=== PATIENT | female | born 1945 | race American Indian/Alaskan Native ===

== ENCOUNTER 2023-02-11 09:41 | Emergency (ER) | payer MEDICARE, OTHER ==
[~2023-02-11] VITALS: Ht 154.9 cm; Wt 70.2 kg
--- OUTSIDE RECORDS SUMMARY | ~2023-02-11 | XMS | Continuity of Care Document ---
Demographics + + + | Address | [address] | | | [place] [address] | + + + | Preferred Language | Unknown | + + + | Marital Status | | + + + | Yazidi Affiliation | Unknown | + + + | Race | or | + + + | Ethnic Group | Not or | + + + Author + + + | Author | [facility] | + + + | Organization | [facility] | + + + | Address | [address] | | | [place] [address] | + + + | Phone | | + + + Care Team Providers + + + + | Care Meat And Seafood Clerk Name | Role | Phone | + + + + Unavailable | Unavailable | + + + + Unavailable | Unavailable | + + + + Allergies and Intolerances + + + + + | date | description | facility | type | + + + + + | (no date) | Morphine | [facility] | | + + + + + | (no date) | Morphine | [facility] ([facility] | | + + + + + | (no date) | Morphine | [facility] (unknown[facility] | | [facility] | | + + + + + | (no date) | morphine | [facility] | (unknown) | + + + + + | (no date) | No Known Allergies | [facility] | (unknown) | | | | | | + + + + + Encounters No information. Functional Status No information. Immunizations No information. Medications + + + + | date | description | facility | + + + + | 2023-02-05 00:00 | PSEUDOEPHEDRINE HCL | [facility] | + + + + | 2023-02-05 00:00 | ASPIRIN | [facility] | + + + + | 2023-02-05 00:00 | Timolol Maleate | [facility] | + + + + | 2018-07-31 00:00 | SUMATRIPTAN SUCCINATE | [facility] | + + + + | 2023-02-05 00:00 | ESCITALOPRAM OXALATE | [facility] | + + + + | 2023-02-05 00:00 | AMOXICILLIN/POTASSIUM CLAV | [facility] | | | | | + + + + | 2023-02-05 00:00 | LEVOCETIRIZINE | [facility] | | | DIHYDROCHLORIDE | | + + + + | 2023-02-05 00:00 | METOPROLOL SUCCINATE | [facility] | + + + + | 2023-02-05 00:00 | LEVOTHYROXINE SODIUM | [facility] | + + + + | 2023-02-05 00:00 | PRAVASTATIN SODIUM | [facility] | + + + + | 2023-02-05 00:00 | BUDESONIDE | [facility] | + + + + | 2023-02-05 00:00 | LOSARTAN POTASSIUM | [facility] | + + + + Problems + + + + | date | description | facility | + + + + | 2023-02-05 00:00 | Infection due to severe | [facility] | | | acute respiratory syndrome | | | | coronavirus 2 (SARS-CoV-2) | | + + + + | 2023-02-05 14:17 | COUGH, UNSPECIFIED | [facility] | + + + + | 2023-02-05 14:17 | COVID-19 | [facility] | + + + + | 2023-02-05 14:17 | 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 Results/Labs +--------+--------+ + +---------+--------+ + | test | date | author | facility | value | unit | | | | | | | | | interpreta | | | | | | | | tion | +--------+--------+ + +---------+--------+ + + + | Result panel 1 | + + + + + + +---------+ + + | (unknown) | (no date) | (unknown) | [facility] | (no | (units | (unknown) | | | [facility] | value) | unknown) | | [facility] | | | | + + + + +---------+ + + + + | Result panel 2 | + + + + + + +---------+ + + | (unknown) | (no date) | (unknown) | [facility] | (no | (units | (unknown) | | | | [facility] | value) | unknown) | | | | | [facility] | | | | + + + + +---------+ + + + + | Result panel 3 | + + + + + + +---------+ + + | (unknown) | (no date) | (unknown) | [facility] | (no | (units | (unknown) | | | | [facility] | value) | unknown) | | | | | [facility] | | | | + + + + +---------+ + + + + | Result panel 4 | + + + + + + +---------+ + + | (unknown) | (no date) | (unknown) | [facility] | (no | (units | (unknown) | | | | [facility] | value) | unknown) | | | | | [facility] | | | | + + + + +---------+ + + + + | Result panel 5 | + + + + + + +---------+ + + | (unknown) | (no date) | (unknown) | [facility] | (no | (units | (unknown) | | | | | [facility] | value) | unknown) | | | | | [facility] | | | | + + + + +---------+ + + + + | Result panel 6 | + + + + + + +---------+ + + | (unknown) | (no date) | (unknown) | [facility] | (no | (units | (unknown) | | | | | [facility] | value) | unknown) | | | | | [facility] | | | | + + + + +---------+ + + + + | Result panel 7 | + + + + + + +---------+ + + | (unknown) | (no date) | (unknown) | [facility] | (no | (units | (unknown) | | | | [facility] | value) | unknown) | | | | | [facility] | | | | + + + + +---------+ + + + + | Result panel 8 | + + + + + + +---------+ + + | (unknown) | (no date) | (unknown) | [facility] | (no | (units | (unknown) | | | | [facility] | value) | unknown) | | | | | [facility] | | | | + + + + +---------+ + + + + | Result panel 9 | + + + + + + +---------+ + + | (unknown) | (no date) | (unknown) | [facility] | (no | (units | (unknown) | | | | [facility] | value) | unknown) | | | | | [facility] | | | | + + + + +---------+ + + + + | Result panel 10 | + + + + + + +---------+ + + | (unknown) | (no date) | (unknown) | [facility] | (no | (units | (unknown) | | | | [facility] | value) | unknown) | | | | | [facility] | | | | + + + + +---------+ + + + + | Result panel 11 | + + + + + + +---------+ + + | (unknown) | (no date) | (unknown) | [facility] | (no | (units | (unknown) | | | | [facility] | value) | unknown) | | | | | [facility] | | | | + + + + +---------+ + + + + | Result panel 12 | + + + + + + +---------+ + + | (unknown) | (no date) | (unknown) | [facility] | (no | (units | (unknown) | | | | [facility] | value) | unknown) | | | | | [facility] | | | | + + + + +---------+ + + Social History No information. Vital Signs + + + +---------+ | date | measurement | value | units | + + + +---------+ | 2023-02-05 00:00 | BMI | 27.6 | kg/m2 | + + + +---------+ | 2023-02-05 00:00 | BP_diastolic | 80 | mmHg | + + + +---------+ | 2023-02-05 00:00 | BP_systolic | 167 | mmHg | + + + +---------+ | 2023-02-05 00:00 | heart_rate | 72 | /min | + + + +---------+ | 2023-02-05 00:00 | height_metric | 157.48 | cm | + + + +---------+ | 2023-02-05 00:00 | height_standard | 62 | in | + + + +---------+ | 2023-02-05 00:00 | o2_saturation | 100 | % | + + + +---------+ | 2023-02-05 00:00 | respiration_rate | 20 | /min | + + + +---------+ | 2023-02-05 00:00 | temperature_metric | 37.33 | C | | | | | | + + + +---------+ | 2023-02-05 00:00 | | 99.2 | F | | | temperature_standar | | | | | d | | | + + + +---------+ | 2023-02-05 00:00 | weight_metric | 68.49 | kg | + + + +---------+ | 2023-02-05 00:00 | weight_standard | 150.99 | lb | + + + +---------+ | 2023-02-05 00:00 | weight_standard | 151 | lb | + + + +---------+"
--- OUTSIDE RECORDS SUMMARY | ~2023-02-11 | XMS | Continuity of Care Document ---
Demographics + + + | Address | [address] | | | [place] [address] | + + + | Preferred Language | Unknown | + + + | Marital Status | | + + + | Hindu Affiliation | Unknown | + + + | Race | or | + + + | Ethnic Group | Not or | + + + Author + + + | Author | [facility] | + + + | Organization | [facility] | + + + | Address | [address] | | | [place] [address] | + + + | Phone | | + + + Care Team Providers + + + + | Care Decker Operator Name | Role | Phone | + [...] | 2023-02-05 00:00 | PSEUDOEPHEDRINE HCL | [facility] | + + + + | 2023-02-05 00:00 | ASPIRIN | [facility] | + + + + | 2023-02-05 00:00 | Timolol Maleate | [facility] | + + + + | 2018-07-31 00:00 | SUMATRIPTAN SUCCINATE | [facility] | + + + + | 2023-02-05 00:00 | ESCITALOPRAM OXALATE | [facility] | + + + + | 2023-02-05 00:00 | AMOXICILLIN/POTASSIUM CLAV | [facility] | | | | | + + + + | 2023-02-05 00:00 | LEVOCETIRIZINE | [facility] | | | DIHYDROCHLORIDE | | + + + + | 2023-02-05 00:00 | METOPROLOL SUCCINATE | [facility] | + + + + | 2023-02-05 00:00 | LEVOTHYROXINE SODIUM | [facility] | + + + + | 2023-02-05 00:00 | PRAVASTATIN SODIUM | [facility] | + + + + | 2023-02-05 00:00 | BUDESONIDE | [facility] | + + + + | 2023-02-05 00:00 | LOSARTAN POTASSIUM | [facility] | + + + + Problems + + + + | date | description | facility | + + + + | 2023-02-05 00:00 | Infection due to severe | [facility] | | | acute respiratory syndrome | | | | coronavirus 2 (SARS-CoV-2) | | + + + + | 2023-02-05 14:17 | COUGH, UNSPECIFIED | [facility] | + + + + | 2023-02-05 14:17 | COVID-19 | [facility] | + + + + | 2023-02-05 14:17 | PUBLIC HEALTH PROFESSOR (CURRENT) USE OF | [facility] | | | ASPIRIN | | + + + + | 2023-02-05 14:17 | HORMONE REPLACEMENT | [facility] | | | THERAPY | | + + + + | 2023-02-05 14:17 | OTHER CARE HOME (CURRENT) | [facility] | | | DRUG [...]
[~2023-02-11 09:41] MED LIST: AMOX TR-K CLV1 EAC1 PO; ASPIR-LOW81 MG PO; ESCITALOPRAM OX20 MG PO; LEVOCETIRIZINE D5 MG PO; LEVOTHYROXINE100 MCG PO; LOSARTAN POTASS25 MG PO; METOPROLOL SUCC25 MG PO; PRAVASTATIN SOD40 MG PO; PULMICORT FLE180 MCG INH; SUDOGEST60 MG PO; SUMATRIPTAN SUC50 MG PO; TIMOLOL MALEATE5 M2 OU
--- OUTSIDE RECORDS SUMMARY | 2023-02-11 09:49 | XMS ---
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 EAdonis VISIT COUNT (12 MO.) 2 [facility] TOTAL 2 NOTE: Visits indicate total known visits. 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
[2023-02-11] MEDS ORDERED: PREDNISONE20 MG PO (11:47)
[2023-02-11 12:07] VITALS: BP 158/65
== END 2023-02-11 12:07 | disposition home or self-care (01) ==
LOC: ED 09:41
DX: U07.1 COVID-19 (principal); J40 Bronchitis, not specified as acute or chronic; Z79.890 Hormone replacement therapy; Z95.2 Presence of prosthetic heart valve; Z79.899 Other long term (current) drug therapy; Z79.82 Long term (current) use of aspirin; Z88.5 Allergy status to narcotic agent
CPT/HCPCS: 71045; 94640; 99283 25; J7512

== ENCOUNTER 2024-04-19 08:50 | Emergency (ER) | payer MEDICARE, OTHER ==
[~2024-04-19] VITALS: Ht 154.9 cm; Wt 69.4 kg
[~2024-04-19 08:50] MED LIST changes: +PREDNISONE20 MG PO
[2024-04-19] MEDS ORDERED: AMLODIPINE BESY10 MG PO (09:28)
[2024-04-19] MEDS ORDERED: LEVOTHYROXINE112 MCG PO (09:28)
[2024-04-19] MEDS ORDERED: ISOSORBIDE MONO60 MG PO (09:29)
[2024-04-19] MEDS ORDERED: VENTOLIN HFA18 GM INH (09:30)
[2024-04-19] MEDS ORDERED: BENZONATATE100 MG PO (09:30)
[2024-04-19] MEDS ORDERED: ALBUTEROL/IPRATROPIUM 3 ML NEB INH ONE (09:30)
[2024-04-19 10:28] LABS: INFLUENZA B NAA NEGATIVE (NEGATIVE); RESPIRATORY SYNCYTIAL VIR NAA NEGATIVE (NEGATIVE)
[2024-04-19] MEDS ORDERED: PREDNISONE50 MG PO (10:54)
[2024-04-19] MEDS ORDERED: ALBUTEROL SULFATE 0.5% 2.5 MG/0.5 ML VIAL INH ONE (11:00)
[2024-04-19] MEDS ORDERED: GUAIFENESIN 10 ML UNIT DOSE CUP PO ONE (11:00)
[2024-04-19] MEDS ORDERED: predniSONE 20 MG TAB PO ONE (11:00)
[2024-04-19] MEDS ORDERED: ALBUTEROL SULFATE 0.5% 2.5 MG/0.5 ML VIAL ONE (11:20)
[2024-04-19 11:30] VITALS: BP 168/77
== END 2024-04-19 11:30 | disposition home or self-care (01) ==
LOC: ED 08:50
PROVIDERS: Emergency Medicine
DX: J06.9 Acute upper respiratory infection, unspecified (principal); I25.10 Atherosclerotic heart disease of native coronary artery without angina pectoris; Z95.2 Presence of prosthetic heart valve; Z88.5 Allergy status to narcotic agent; Z79.890 Hormone replacement therapy; Z79.82 Long term (current) use of aspirin; Z79.899 Other long term (current) drug therapy; Z79.52 Long term (current) use of systemic steroids; Z11.52 Encounter for screening for COVID-19
CPT/HCPCS: 71045; 87502; 94640; 99285-25; J7512; U0002

== ENCOUNTER 2024-08-02 08:52 | Emergency (ER) | payer MEDICARE, OTHER ==
[~2024-08-02] VITALS: Ht 154.9 cm; Wt 69.9 kg
[~2024-08-02 08:52] MED LIST changes: +AMLODIPINE BESY10 MG PO; +BENZONATATE100 MG PO; +ISOSORBIDE MONO60 MG PO; +LEVOTHYROXINE112 MCG PO; +PREDNISONE50 MG PO; +VENTOLIN HFA18 GM INH
[2024-08-02] MEDS ORDERED: ALBUTEROL SULFATE 8 GM HOME.PACK INH ONE (10:15)
[2024-08-02] MEDS ORDERED: INHALER, ASSIST DEVICES 1 EACH SPACER MISC ONE (10:15)
[2024-08-02] MEDS ORDERED: ALBUTEROL/IPRATROPIUM 3 ML NEB INH ONE (10:15)
[2024-08-02] MEDS ORDERED: predniSONE 20 MG TAB PO ONE (10:15)
[2024-08-02 11:22] VITALS: BP 132/59
== END 2024-08-02 11:21 | disposition home or self-care (01) ==
LOC: ED 08:52
DX: J45.901 Unspecified asthma with (acute) exacerbation (principal); Z86.16 Personal history of COVID-19; Z88.5 Allergy status to narcotic agent; Z95.2 Presence of prosthetic heart valve; Z79.82 Long term (current) use of aspirin; Z79.890 Hormone replacement therapy; Z79.52 Long term (current) use of systemic steroids; Z79.51 Long term (current) use of inhaled steroids; Z79.899 Other long term (current) drug therapy
CPT/HCPCS: 94640; 94664; 99283; J7512